=== PATIENT | male | born 1970 | race Caucasian/White ===

== ENCOUNTER → 2018-07-01 06:03 | Outpatient (CLI) | payer OTHER, SELFPAY ==
[2018-07-01 07:00] LABS: Anion Gap 5 (5-15); BUN 22 mg/dL (7-18); BUN/Creat Ratio 20.2 RATIO (10-20); Calcium,Total 8.4 mg/dL (8.5-10.1); Chloride 104 mmol/L (98-107); Cholesterol 166 mg/dL (200); Creatinine, Serum 1.09 mg/dL (0.70-1.30); EST Glomerular Filtration Rate 77 mL/min (>60); Est Glom Filt Rate - Afr Amer 93 mL/min (>60); Glucose 85 mg/dL (74-106); High Density Lipoprotein 56 mg/dL; Sodium Level 140 mmol/L (136-145); Triglycerides 61 mg/dL; Very Low Density Lipoprotein 12 mg/dL (5-40)
== END ==
PROVIDERS: Family Provider Family Medicine; PCP Family Medicine; Visit Provider Family Medicine
DX: Z00.00 Encounter for general adult medical examination without abnormal findings (principal)
CPT/HCPCS: 36415; 80048; 80061

== ENCOUNTER → 2019-11-07 07:32 | Outpatient (CLI) | payer OTHER, SELFPAY ==
[2019-11-07 08:51] LABS: Anion Gap 3 (5-15); BUN 16 mg/dL (7-18); BUN/Creat Ratio 15.1 RATIO (10-20); Calcium,Total 8.9 mg/dL (8.5-10.1); Chloride 101 mmol/L (98-107); Cholesterol 201 mg/dL (200); Creatinine, Serum 1.06 mg/dL (0.70-1.30); EST Glomerular Filtration Rate 79 mL/min (>60); Est Glom Filt Rate - Afr Amer 95 mL/min (>60); Glucose 92 mg/dL (74-106); High Density Lipoprotein 60 mg/dL; PSA,Total - Annual Screen 0.68 ng/mL (0.00-4.00); Potassium 3.9 mmol/L (3.5-5.1); Sodium Level 139 mmol/L (136-145); Triglycerides 94 mg/dL; Very Low Density Lipoprotein 19 mg/dL (5-40)
== END ==
PROVIDERS: PCP Family Medicine; Referring Provider Family Medicine; Visit Provider Family Medicine
DX: Z13.1 Encounter for screening for diabetes mellitus (principal); Z13.220 Encounter for screening for lipoid disorders; Z12.5 Encounter for screening for malignant neoplasm of prostate
CPT/HCPCS: 36415; 80048; 80061; 84153; G0103

== ENCOUNTER 2021-02-04 07:19 | Day surgery (SDC) | payer OTHER, SELFPAY ==
[2020-02-13 09:10] VITALS: BMI 23.1
[2021-02-04] VITALS (7 sets, daily range): BP systolic 92–118; BP diastolic 58–81; PULSE 51–59; RESP 16–18; TEMP 36.3–36.8; O2SAT 100; BMI 22.4
[2021-02-04] MEDS: Lactated Ringers 1,000 ML 100 ML IV (08:04)
--- NOTE | 2021-02-04 08:06 | PCM.HP.STD ---
Problem List (1) Screening for intestinal cancer Status: Acute History of Present Illness Date of Admission: 02/04/21 The patient is a 50 year old M who presents for screening colonoscopy. I saw him in the office almost 1 year ago. He was having some intermittent rectal bleeding at that time. Because of COVID-19 plans for colonoscopy were canceled. He otherwise enjoys good health. He has not had COVID-19. He denies shortness of breath. He will intermittently note some rectal bleeding. There is no pain. He has had no weight loss. There is no family history of colon cancer. Past Medical History Medical History: Medical History (Last Reviewed 02/13/20 @ 09:06 by Gardenia Pham) Vertigo (Acute) R42 Rectal bleeding (Acute) K62.5 Dizziness R42 Rectal bleeding K62.5 Allergies Penicillins Allergy (Unknown, Verified 02/04/21 07:58) unknown Home Medications: Ambulatory Orders Medication Instructions Recorded NK 02/13/20 Surgical History: Surgical History (Last Updated 02/13/20 @ 09:06 by Gardenia Pham) Hx of vasectomy Z98.52 Smoking Status: Former smoker Tobacco Use: Non-smoker Review of Systems Constitutional: Denies: Fever Respiratory: Denies: Cough Gastrointestinal: Denies: Abdominal Pain Endocrine: Denies: Change in Body Habitus VTE Information - Inpt Only VTE Present on Admission: No - Physical Exam Vitals/I&O's: Vital Signs Temp Pulse Resp BP Pulse Ox 98 F 59 L 16 118/81 H 100 02/04/21 07:58 02/04/21 07:58 02/04/21 07:58 02/04/21 07:58 02/04/21 07:58 Oxygen Delivery Method Room Air Weight: 169 lb 8.568 oz Body Mass Index (BMI) 22.4 General: Alert, Oriented x3, Cooperative Oral: Moist Mucosa Lungs: Clear to auscultation Cardiovascular: Regular rate, Regular Rhythm Abdomen: Soft, Non Tender Extremities: No Calf Tenderness Psych/Mental Status: Normal Affect Microbiology Past 72 Hours 02/03/21 09:08 Interface Orders SARS-CoV-2 Antigen (Rapid) - Final Current Medications Lactated Ringer's () 1,000 mls @ 100 mls/hr IV .Q10H YOVANI Last Admin: 02/04/21 08:04 Dose: 100 mls/hr Documented by: Assessment/Plan All Active Problems (Last Reviewed 02/13/20 @ 09:06 by Gardenia Pham) Screening for intestinal cancer (Acute) Vertigo (Acute) Rectal bleeding (Acute) 50-year-old gentleman who is never had a previous colonoscopy and has some intermittent rectal bleeding presents for screening. He has had an opportunity to ask and have questions answered. I anticipate a colonoscopy with possible biopsy or polypectomy as indicated. He presents via open access today. Naseem Pagan M.D., F.A.C.S.
--- NOTE | 2021-02-04 09:03 | OP.COLON_ITS ---
Patient Name: Brandon Leos Procedure Date: 02/04/2021 8:36 AM Date of : 1970 Age: 50 Procedure: Colonoscopy Indications: Screening for colorectal malignant neoplasm Providers: Naseem Pagan MD Referring MD: Marc Merrill Medicines: See the Anesthesia note for documentation of the administered medications Patient Profile: Last Colonoscopy: none. The patient's first colonoscopy is today. Complications: No immediate complications. Procedure: Pre-Anesthesia Assessment: - Prior to the procedure, a History and Physical was performed, and patient medications and allergies were reviewed. The patient's tolerance of previous anesthesia was also reviewed. The risks and benefits of the procedure and the sedation options and risks were discussed with the patient. All questions were answered, and informed consent was obtained. Prior Anticoagulants: The patient has taken no previous anticoagulant or antiplatelet agents. ASA Grade Assessment: I - A normal, healthy patient. After reviewing the risks and benefits, the patient was deemed in satisfactory condition to undergo the procedure. After I obtained informed consent, the scope was passed under direct vision. Throughout the procedure, the patient's blood pressure, pulse, and oxygen saturations were monitored continuously. The Colonoscope was introduced through the anus and advanced to the cecum, identified by appendiceal orifice and ileocecal valve. The colonoscopy was performed without difficulty. The patient tolerated the procedure well. The quality of the bowel preparation was good. The ileocecal valve and the appendiceal orifice were photographed. Scope In: 8:42:19 AM Scope Withdrawal Time 0 hours 8 minutes 44 seconds Scope Out: 8:57:53 AM Total Procedure Duration Time 0 hours 15 minutes 34 seconds Findings: The digital rectal exam findings include non-thrombosed internal hemorrhoids and internal hemorrhoids that prolapse with straining, but require manual replacement into the anal canal (Grade III). Pertinent negatives include normal prostate (size, shape, and consistency). Multiple diverticula were found in the sigmoid colon. Impression: - Non-thrombosed internal hemorrhoids and internal hemorrhoids that prolapse with straining, but require manual replacement into the anal canal (Grade III) found on digital rectal exam. - Diverticulosis in the sigmoid colon. - No specimens collected. Recommendation: - Discharge patient to home. - Resume previous diet. - Continue present medications. - Repeat colonoscopy in 10 years for screening purposes. Suspect internal hemorrhoids as source of intermittent rectal bleeding. Consider ppH hemorrhoidopexy Procedure Code(s): --- Professional --- 48096, Colonoscopy, flexible; diagnostic, including collection of specimen(s) by brushing or washing, when performed (separate procedure) Diagnosis Code(s): --- Professional --- Z12.11, Encounter for screening for malignant neoplasm of colon K64.2, Third degree hemorrhoids K57.30, Diverticulosis of large intestine without perforation or abscess without bleeding CPT copyright 2017 [employer]. All rights reserved. 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 Naseem Pagan MD 02/04/2021 9:02:42 AM This report has been signed electronically. Number of Addenda: 0 Note Initiated On: 02/04/2021 8:36 AM
--- NOTE | 2021-02-04 09:03 | OP.CCLET_ITS ---
02/04/2021 Marc Merrill [address] [place] [address] Re : Colonoscopy procedure for Brandon Leos Dear Dr. Merrill This procedure was performed on Thursday, February 04, 2021. My impressions and recommendations are as follows: Impressions : - Non-thrombosed internal hemorrhoids and internal hemorrhoids that prolapse with straining, but require manual replacement into the anal canal (Grade III) found on digital rectal exam. - Diverticulosis in the sigmoid colon. - No specimens collected. Recommendations : - Discharge patient to home. - Resume previous diet. - Continue present medications. - Repeat colonoscopy in 10 years for screening purposes. Suspect internal hemorrhoids as source of intermittent rectal bleeding. Consider ppH hemorrhoidopexy My findings are described in the full procedure note, which is enclosed. If I can be of further assistance, please feel free to contact me at Doctor phone number(s): Work: . Sincerely, Naseem Pagan MD 02/04/2021 9:02:42 AM This report has been signed electronically.
== END 2021-02-04 09:55 | disposition home or self-care (01) ==
LOC: EN 07:19 → AC 07:19
PROVIDERS: PCP Family Medicine; Referring Provider Family Medicine; Visit Provider Surgery
PROC: 0DJD8ZZ Inspection of Lower Intestinal Tract, Via Natural or Artificial Opening Endoscopic (ICD-10-PCS; CPT 45378; principal; 2021-02-04 08:25)
DX: Z12.11 Encounter for screening for malignant neoplasm of colon (principal); K64.2 Third degree hemorrhoids; K57.30 Diverticulosis of large intestine without perforation or abscess without bleeding; Z20.822 Contact with and (suspected) exposure to COVID-19; Z87.891 Personal history of nicotine dependence
CPT/HCPCS: 45378; 87426; C9803; J2405

== ENCOUNTER 2021-03-20 12:34 | Emergency (ER) | payer OTHER, SELFPAY ==
[2021-02-04 07:58] VITALS: BMI 22.4
[2021-03-20 12:35] VITALS: BP 125/76; PULSE 70; RESP 16; TEMP 36.2; BMI 22.8
--- NOTE | 2021-03-20 12:46 | EDS_ITS ---
HPI History of Present Illness Chief Complaint: Laceration Informant: patient Onset/Context/Timing Onset: Today Mechanism/Context: Incised (accidentally w/ end of chain saw) Location of pain/injuries: Left thigh Quality of Pain: - (sore) Current Severity: Mild Maximum Severity: Mild Worsened by: palpation Relieved by: leaving alone Associated Symptoms Associated Symptoms: Negative for Parasthesias, Weakness, Loss of function and I nability to ambulate Narrative Narrative: Patient was using a chainsaw to cut wood and accidentally caught his left thigh. Laceration did not go deep and he denies any loss of function has been able to walk normally. He is on no blood thinners or any other daily medications. No other injuries. Tetanus Immunization: 5-10 years [facility] Medical History (Updated 03/20/21 @ 13:[address] Agustín Monique MD) Dizziness Rectal bleeding Rectal bleeding Vertigo Home Medications NK 02/13/20 [History Last Taken Unknown] Allergy/AdvReac Type Severity Reaction Status Date / Time Penicillins Allergy Unknown unknown Verified 02/04/21 07:58 Family History Father Heart disease Grandmother CVA (cerebral vascular accident) Surgical History Hx of vasectomy Social History Smoking Status: Former smoker alcohol intake: never substance use type: does not use ROS ROS ED Constitutional Constitutional ED: Denies chills or fever(s) Musculoskeletal Musculoskeletal: Reports extremity pain; Denies neck pain Integumentary Reports Abrasions and laceration; Denies rash Neurologic Neurologic: Denies paresthesias or weakness EXAM Physical Exam Const Vital Signs: 03/20/21 12:35 Temperature 97.1 F L Temperature Source Temporal Pulse Rate 70 Respiratory Rate 16 Blood Pressure 125/76 H Blood Pressure Mean 92 Positive well nourished and well developed General Appearance ED: well developed and NAD Neck full ROM and supple Back/Spine normal ROM and normal to inspection Extremity full ROM Extremity Narrative: Minimally tender at laceration left anterior distal thigh, full range of motion of the knee and hip. No other signs of injury. Neuro oriented x3, no focal motor deficits and no sensory deficits noted Sensorium / Orientation: alert Psych mental status grossly normal and thought process normal Skin Skin Narrative: 8 cm clean linear subcutaneous laceration that does not go beyond subcutaneous fat layer of the distal left thigh. No foreign material visible. Nearby superficial abrasion that does not require repair, parallel to and above the laceration. Rashes: no rashes PROC Procedures Lacerations Left thigh: Length: 8 cm Depth: Sub Q Shape: Linear Prep: Sterile Conditions and Chlorhexadine Laceration repair: Lidocaine (Plain 1%), Local (9cc) and Skin sutures Irrigated (ml): 100 Number of Sutures/Danisha: 5 Suture Information: Horizontal, Mattress and 4-0 MDM MDM MDM Narrative Medical decision making narrative: Wound was repaired, leg edema stasis and skin edge apposition was obtained, his tetanus was updated, I discussed reasons to return and suture removal/wound reevaluation in 10-14 days. Discharge Plan Triage Chief Complaint: Laceration ED Provider: Agustín Monique Dx/Rx/DC Orders Clinical Impression: Laceration of left thigh, Immunization, tetanus-diphtheria Instructions: ED Laceration: All Closures Prescriptions: No Action NK RF: 0 Primary Care Provider: Marc Merrill Referrals: Marc Merrill MD [Primary Care Provider] - 10-14 Days suture removal (Or ER/urgent care) Disposition Disposition: Home, self care
[2021-03-20] MEDS: Diphth,Pertuss(Acell),Tet Vac 0.5 ML Vial IM (12:53)
[2021-03-20] MEDS: Lidocaine 1% (20 ml mdv) 20 ML Vial INFILT (12:54)
[2021-03-20 14:00] VITALS: PULSE 88; RESP 16; O2SAT 97
== END 2021-03-20 14:03 | disposition home or self-care (01) ==
PROVIDERS: Emergency Provider Emergency Medicine; PCP Family Medicine
DX: S71.112A Laceration without foreign body, left thigh, initial encounter (principal); W29.3XXA Contact with powered garden and outdoor hand tools and machinery, initial encounter; Z87.891 Personal history of nicotine dependence
CPT/HCPCS: 12004; 90471; 90715; 99283

== ENCOUNTER → 2021-09-02 | Outpatient (CLI) | payer OTHER, SELFPAY | END | disposition home or self-care (01) | PROVIDERS: PCP Family Medicine; Visit Provider Family Medicine | DX: U07.1 COVID-19 (principal) | CPT/HCPCS: 87635; U0005; U0003 ==

== ENCOUNTER 2022-08-25 06:37 | Emergency (ER) | payer OTHER, SELFPAY ==
[2022-08-25 06:39] VITALS: BP 136/81; PULSE 59; RESP 14; TEMP 36.7; O2SAT 99; BMI 22.2
--- NOTE | 2022-08-25 07:09 | EKG12_ITS ---
Test Reason : CP Blood Pressure : / mmHG Vent. Rate : 059 BPM Atrial Rate : 059 BPM P-R Int : 176 ms QRS Dur : 098 ms QT Int : 440 ms P-R-T Axes : 081 060 071 degrees QTc Int : 435 ms Sinus bradycardia with occasional Premature ventricular complexes Otherwise normal ECG Confirmed by BRITNI SHANNON, SAMEERA ([id number]), loan expeditor RONY OTT ([id number]) on 08/29/2022 11:28:41 AM Referred By: BERNA Confirmed By:SAMEERA RYDER MD
[2022-08-25 07:20] LABS: Absolute Lymphocyte Count 1.15 X10^3/uL (0.83-4.51); Absolute Neutrophil Count 1.9 X10^3/uL (2.0-7.7); Basophil# 0.04 X10^3/uL; Eosinophil# 0.36 X10^3/uL; Eosinophils% 9.2 % (0-5); Hematocrit 44.6 % (40-54); Hemoglobin 15.2 g/dL (13.0-16.5); Lymphocyte # 1.15 X10^3/ul (0.83-4.51); Lymphocyte % 29.3 % (19-41); Mean Corp Hgb Conc 34.1 g/dL (32-36); Mean Corpuscular Hgb 30.8 pg (27.0-32.0); Mean Corpuscular Volume 90.5 fL (80-94); Mean Platelet Vol. 9.1 fl (6.2-12.0); Monocyte# 0.47 X10^3/uL; NRBC Flagged by Analyzer 0 % (0-5); Neutrophil % 48.2 % (47-70); Platelet Count 189 K/mm3 (150-450); RBC Distribution Width CV 12.3 % (11.6-14.6); RBC Distribution Width SD 40.4 fl (35.1-43.9); Red Blood Count 4.93 M/mm3 (4.6-6.2); White Blood Count 3.9 K/mm3 (4.4-11.0)
--- NOTE | 2022-08-25 07:20 | RAD_ITS ---
EXAM: XR CHEST, 1 VIEW CLINICAL INDICATION: chest pain TECHNIQUE: Frontal view of the chest. This report was created using [employer] report generation technology. COMPARISON: None. FINDINGS: LUNGS AND PLEURAL SPACES: Normal. No consolidation or edema. No pneumothorax. No effusion. HEART: Normal heart size. MEDIASTINUM: No mediastinal or hilar mass. BONES/JOINTS: No acute abnormality. SOFT TISSUES: Normal. RAD/Chest 1 View (Portable) IMPRESSION: No acute cardiopulmonary disease. Electronically Signed: Dago Jenkins MD at 7:34 EST ,
--- NOTE | 2022-08-25 07:26 | EDS_ITS ---
HPI History of Present Illness Chief Complaint: Chest Pain Onset/Context/Timing Onset: Today Activity at onset: sudden Timing: Intermittent and Lasts (Approximately 6 minutes) Quality: Positive for Tightness Location: Substernal, Right Parasternal, Left Parasternal, Right Chest and Left Chest Worsened By: Nothing Relieved By: Nothing Associated Symptoms: Positive for Diaphoresis, Dyspnea and Lightheadedness; Negative for Nausea, Vomiting, Cough, Fever, Acid Reflux or Palpitations Narrative Narrative: Patient presents with with chest pain that began approximate 1 hour prior to arrival. Patient states it felt like a tightness across his entire chest. Patient states it lasted for approximately 6 minutes and then resolved. Patient states nothing makes it worse and nothing makes it better. Patient states he broke out into a sweat with it. Patient admits to some shortness of breath with the pain. Patient also admits to some lightheadedness. Patient denies any nausea or vomiting. Patient denies any cough. Patient denies any palpitations. Patient denies any radiation to his neck or back. CVD Risk Factors: Negative for Hypertension, Diabetes, Hypercholesterolemia, Family History 1' </=55 or Smoking PE Risk Factors: Negative for Recent Travel/Surgery, Recent Immobilization, Prior DVT or PE, Cancer or OCP + Smoking + >/=35 PFSH PFSH Medical History (Updated 08/25/22 @ 10:[address] Gamaliel Bruce DO) Dizziness Rectal bleeding Rectal bleeding Vertigo Allergy/AdvReac Type Severity Reaction Status Date / Time Penicillins Allergy Unknown unknown Verified 10/28/21 13:09 Family History Father Heart disease Grandmother CVA (cerebral vascular accident) Surgical History Hx of vasectomy Surgical History no surgical history Social History Smoking Status: Former smoker alcohol intake: never substance use type: does not use ROS ROS ED Constitutional Constitutional ED: Denies chills or fever(s) Eyes Eyes: Denies blurry vision or change in vision ENT ENT ED: Denies rhinorrhea or sore throat Cardiovascular Cardiovascular: Reports chest pain; Denies palpitations Respiratory/Chest Respiratory/Chest: Reports dyspnea; Denies cough Gastrointestinal Gastrointestinal: Denies abdominal pain, nausea or vomiting Genitourinary Genitourinary ED: Denies dysuria or hematuria Musculoskeletal Musculoskeletal: Denies back pain or neck pain Integumentary Denies abscess or rash Neurologic Neurologic: Denies headache(s) or weakness Allergic/Immunologic Allergic/Immunologic ED: Denies mouth swelling or urticaria EXAM Physical Exam Const Vital Signs: 08/25/22 06:39 08/25/22 06:42 08/25/22 07:10 Temperature 98.1 F Temperature Source Oral Pulse Rate 59 L Respiratory Rate 14 Respiratory Effort Normal Non-Labored Respiratory Pattern Normal Blood Pressure 136/81 H Blood Pressure Mean 99 Pulse Ox 99 Oxygen Delivery Method Room Air Room Air 08/25/22 07:51 08/25/22 08:12 08/25/22 09:05 Temperature Temperature Source Pulse Rate 60 59 L 56 L Respiratory Rate 16 18 12 Respiratory Effort Respiratory Pattern Blood Pressure 97/71 102/76 101/77 Blood Pressure Mean 79 84 85 Pulse Ox 98 99 100 Oxygen Delivery Method Room Air Room Air Room Air Positive well nourished and well developed General Appearance ED: well developed and NAD HEENT normocephalic and atraumatic Eyes PERRL and EOMs intact bilaterally Neck supple and no JVD Chest Wall palpation of chest normal Resp normal respiratory effort and clear to auscultation bilaterally Effort and Inspection: Negative for respiratory distress Cardio regular rate and regular rhythm GI normal to inspection, nondistended, normoactive bowel sounds, soft to palpation, non-tender and non-distended Extremity normal to inspection General Extremety ED: Negative for edema or tenderness General Extremity: Negative for edema Neuro oriented x3, CN's II-XII intact bilaterally and no sensory deficits noted Sensorium / Orientation: awake and alert Motor Exam: strength 5/5 throughout Psych mental status grossly normal Heart Score History: Slightly/Non-Suspicious ECG: Normal Age: >45 - <65 years Risk Factors: No Risk Factors Troponin: </= Normal Limit Score: 1 MDM MDM MDM Narrative Medical decision making narrative: Patient was given aspirin here. EKG was obtained. On my interpretation, it showed a normal sinus rhythm with occasional PVCs with a rate of 59. IL interval, QRS interval, and QTc intervals were all normal. Randolph was normal. There are no acute ST or T wave changes. Portable 1 view chest x-ray was obtained. On my interpretation, lung beltre are clear. There is normal cardiac silhouette. Bony thorax is normal. There is no acute process noted. Radiologist also interpreted the x-ray and agrees. CBC was within normal limits. Basic metabolic profile was within normal limits. High-sensitivity troponin was normal. 2-hour repeat high-sensitivity troponin was normal. Darlene giles has a HEART score of 1. Patient was advised that this is low risk for acute cardiac event. Patient was instructed to follow-up with his primary care physician in 5 to 7 days. Patient understood and was agreeable with the plan. All questions were answered. Lab Data Attestation: I reviewed the patient's lab results. Labs: Laboratory Results - last 24 hr 08/25/22 08/25/22 08/25/22 07:01 07:01 09:05 WBC 3.9 L RBC 4.93 Hgb 15.2 Hct 44.6 MCV 90.5 MCH 30.8 MCHC 34.1 RDW Std Deviation 40.4 RDW Coeff of Mike 12.3 Plt Count 189 MPV 9.1 Immature Gran % (Auto) 0.300 Neut % (Auto) 48.2 Lymph % (Auto) 29.3 Towns % (Auto) 12.0 H Eos % (Auto) 9.2 H Baso % (Auto) 1.0 Absolute Neuts (auto) 1.9 L Absolute Lymphs (auto) 1.15 Nucleated RBC % 0 Sodium 141 Potassium 3.9 Chloride 103 Carbon Dioxide 35.0 H Anion Gap 3 L BUN 22 H Creatinine 1.01 Estim Creat Clear Calc 92.57 Est GFR (MDRD) Af Amer 99 Est GFR (MDRD) Non-Af 82 BUN/Creatinine Ratio 21.8 H Glucose 130 H Calcium 9.1 Troponin I High Sens 6 6 Radiography Chest X-Ray - ED: 1 View, Read by ED Physician, Read by Radiologist and No Acute Disease Diagnostic Testing: Clinical Impression(s) from Imaging Studies Chest X-Ray 08/25/22 07:20 IMPRESSION: No acute cardiopulmonary disease. Electronically Signed: Dago Jenkins MD at 7:34 EST , EKG Initial EKG: Attestation: I personally reviewed and interpreted this EKG as follows: Interpretation: Sinus Rhythm (Was occasional PVCs with a rate of 59) and No Acute Injury Pattern Prior EKG tracings: not available for review Prior: No Prior Discharge Plan Triage Chief Complaint: Chest Pain ED Provider: Gamaliel Bruce Dx/Rx/DC Orders Clinical Impression: Chest pain of uncertain etiology, Elevated blood pressure reading without diagnosis of hypertension Instructions: ED Chest Pain, Uncertain Cause Primary Care Provider: Marc Merrill Referrals: Marc Merrill MD [Primary Care Provider] - 5-7 Days Disposition Disposition: Home, Self Care
[2022-08-25 07:35] LABS: Anion Gap 3 (5-15); BUN 22 mg/dL (7-18); BUN/Creat Ratio 21.8 RATIO (10-20); Calcium,Total 9.1 mg/dL (8.5-10.1); Chloride 103 mmol/L (98-107); Creatinine, Serum 1.01 mg/dL (0.70-1.30); EST Glomerular Filtration Rate 82 mL/min (>60); Est Glom Filt Rate - Afr Amer 99 mL/min (>60); Estimated Creatinine Clearance 92.57 ml/min; Glucose 130 mg/dL (74-106); Potassium 3.9 mmol/L (3.5-5.1); Sodium Level 141 mmol/L (136-145); Troponin-I HS 6 pg/mL (3.0-78.0)
[2022-08-25 07:51] VITALS: BP 97/71; PULSE 60; RESP 16; O2SAT 98
[2022-08-25] MEDS: Aspirin 81 MG TAB.CHEW 324 MG PO (07:52)
[2022-08-25 08:12] VITALS: BP 102/76; PULSE 59; RESP 18; O2SAT 99
[2022-08-25 09:05] VITALS: BP 101/77; PULSE 56; RESP 12; O2SAT 100
[2022-08-25 09:28] LABS: Troponin-I HS 6 pg/mL (3.0-78.0)
[2022-08-25 10:15] VITALS: BP 104/68; PULSE 61; RESP 14; O2SAT 98
== END 2022-08-25 10:15 | disposition home or self-care (01) ==
PROVIDERS: Emergency Provider Emergency Medicine; PCP Family Medicine; Visit Provider Emergency Medicine
DX: R07.9 Chest pain, unspecified (principal); R03.0 Elevated blood-pressure reading, without diagnosis of hypertension; Z87.891 Personal history of nicotine dependence
CPT/HCPCS: 36415; 71045; 80048; 84484; 85025; 93005; 99285; A4216

== ENCOUNTER → 2022-09-12 | Outpatient (CLI) | payer OTHER, SELFPAY ==
--- NOTE | 2022-09-12 08:15 | STRESSREP_ITS ---
Stress Test Report Date: 09-12-2022 Procedure: Exercise tolerance test/imaging study Indications: Chest pain Consent: Per the patient Procedure: The patient exercised on a Steve protocol for 14 minutes completing Stage IV and 2 minutes of Stage V achieving a peak heart rate of 179 bpm (106% predicted maximal heart rate) with resting blood pressure of 106/76 mmHg and a peak blood pressure 184/80 mmHg and a peak MET capacity of 17 METs. The baseline ECG demonstrated normal sinus rhythm. The peak exercise ECG demonstrated somatic/motion artifact but no obvious ECG changes. There was an isolated PVC during exercise and recovery. The functional capacity was considered good. There was no complaint of chest discomfort during exercise or recovery. The examination was discontinued secondary to dyspnea and leg fatigue. Impression: 1. Technically adequate (percent predicted maximal heart rate greater than 85%) exercise tolerance test 2. Peak exercise ECG with somatic/motion artifact with no obvious ECG changes 3. There was an isolated PVC during exercise and recovery 4. Nuclear images pending Myocardial perfusion imaging study: Technique: The patient was injected with 11.5 mCi of technetium 99m Cardiolite and subsequently rest SPECT Cardiolite nuclear imaging was obtained in the horizontal long, vertical long, and short axis views. The patient exercised on a Steve protocol for 14 minutes completing Stage IV and 2 minutes of Stage V achieving a peak heart rate of 179 bpm (106% predicted maximal heart rate) with resting blood pressure of 106/76 mmHg and a peak blood pressure 184/80 mmHg and a peak MET capacity of 17 METs. The patient was injected with 33.1 mCi of technetium 99m Cardiolite and subsequently stress SPECT Cardiolite nuclear imaging was obtained in the horizontal long, vertical long, and short axis views. A gated Cardiolite study at peak stress was obtained. Interpretation: Rest and stress SPECT Cardiolite nuclear imaging status post realignment, normalization, and attenuation correction, demonstrates the appearance of relative uniform tracer uptake and myocardial perfusion appearing within normal limits. There is end systolic thickening and brightening. The gated Cardiolite study demonstrates myocardial thickening and inward wall motion. The reported LVEF is 59%. Impression: 1. Rest and stress SPECT Cardiolite nuclear imaging demonstrate relative uniform tracer uptake and myocardial perfusion appearing within normal limits. 2. The gated Cardiolite study reports an LVEF of 59%. This note was generated with [employer] software. It may contain incorrect words, spelling, and punctuation that were not noted in checking the note before signing.
== END | disposition home or self-care (01) ==
PROVIDERS: PCP Family Medicine; Visit Provider Nurse Practitioner Family
DX: R07.9 Chest pain, unspecified (principal)
CPT/HCPCS: 78452; 93017; A9500; A4216

== ENCOUNTER 2022-11-24 08:48 | Day surgery (SDC) | payer OTHER, SELFPAY ==
--- NOTE | 2022-11-21 07:13 | EKG12_ITS ---
Test Reason : PRE-OP Blood Pressure : / mmHG Vent. Rate : 070 BPM Atrial Rate : 070 BPM P-R Int : 168 ms QRS Dur : 094 ms QT Int : 398 ms P-R-T Axes : 080 068 067 degrees QTc Int : 429 ms Normal sinus rhythm Normal ECG Confirmed by BRITNI SHANNON, SAMEERA ([id number]), news videotape editor RONY OTT ([id number]) on 11/21/2022 2:00:45 PM Referred By: VAN Confirmed By:SAMEERA RYDER MD
[2022-11-21 07:39] LABS: Hematocrit 43.4 % (40-54); Hemoglobin 15.4 g/dL (13.0-16.5); Mean Corp Hgb Conc 35.5 g/dL (32-36); Mean Corpuscular Hgb 31.4 pg (27.0-32.0); Mean Corpuscular Volume 88.6 fL (80-94); Platelet Count 198 K/mm3 (150-450); RBC Distribution Width CV 12.2 % (11.6-14.6); RBC Distribution Width SD 39.5 fl (35.1-43.9)
[2022-11-21 08:27] LABS: Anion Gap 5 (5-15); BUN 18 mg/dL (7-18); BUN/Creat Ratio 16.7 RATIO (10-20); Calcium,Total 9.1 mg/dL (8.5-10.1); Chloride 105 mmol/L (98-107); Creatinine, Serum 1.08 mg/dL (0.70-1.30); EST Glomerular Filtration Rate 76 mL/min (>60); Est Glom Filt Rate - Afr Amer 92 mL/min (>60); Glucose 105 mg/dL (74-106); Potassium 4.4 mmol/L (3.5-5.1); Sodium Level 143 mmol/L (136-145)
[2022-11-24] VITALS (7 sets, daily range): BP systolic 113–130; BP diastolic 78–92; PULSE 61–75; RESP 10–18; TEMP 36.4–37.2; O2SAT 98–100; BMI 22.1
[2022-11-24] MEDS: Lactated Ringers 1,000 ML 15 ML IV ×2 (09:00→11:14)
--- NOTE | 2022-11-24 11:00 | HEM_PTH ---
PATIENT: LUCILA MOFFETT LOC: [facility] [place][id number] AGE/SX: 52/M ROOM: RE11/24/[address]: Dr. Naseem Pagan MD : 1970 BED: DIS: 11/24/2022 SPEC #: [id number] RECD: 11/24/22 13:17 STATUS: GRADY AN #: [id number] JORGE: 11/24/22 11:[address]: Naseem Pagan DEPT: SURGICAL PATHOLOGY RECD BY: Ines Chester ENTERED: 11/27/22 11:17 SP TYPE: HEMORRHOID OTHR DR: Dr. Laci Merrill MD Tissues: HEMORRHOIDS Procedures: Surgery Specimen Level IV HEADER OPERATION: EUA, anal fissurectomy and possible minimal internal hemorrhoids PRE-OP DIAGNOSIS: Rectal bleeding/hemorrhoids TISSUE SUBMITTED: Anal fissure and hemorrhoid MICROSCOPIC DIAGNOSIS Anal fissure and hemorrhoid, excision: Submucosal vascular ectasia and thrombosis consistent with hemorrhoid. Focal granulation suggestive of fissure. AM:lauro 11/28/2022 MICROSCOPIC DESCRIPTION Slides are reviewed. GROSS DESCRIPTION Received in fixative is one container labeled with the patient's name and designated anal fissure and hemorrhoid. The specimen consists of an irregular piece of bergeron, congested mucosal tissue measuring 2.5 x 2.8 x 1 cm. Sections reveal congested and hemorrhagic cut surfaces. The entire specimen is submitted in two cassettes. / ESTEFANY:lauro 11/27/2022 TC:5 CPT: 41920
--- NOTE | 2022-11-24 11:00 | PCM.HP.BLA ---
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 Naseem Pagan MD) Dizziness Rectal bleeding Rectal bleeding Vertigo Surgical History? Hx of vasectomy Surgical History? no surgical history ? Family History? Father Heart diseaseGrandmother CVA (cerebral vascular accident) Social History? Smoking Status:? Former smoker alcohol intake:? never substance use type:? does not use HPI HPI HPI: 52-year-old gentleman.? I initially saw him February 13, 2020 for rectal bleeding.? It was not till February 04, 2021 that he pursued a colonoscopy.? This demonstrated grade 3 hemorrhoids which were reducible.? At that point I offered him consideration for a hemorrhoidopexy.? He returned however October 28, 2021 with recurrent rectal bleeding.? That time he was having painful defecation.? He had had an episode of Covid-19.? I detected a posterior anal fissure and recommended daily fiber supplement and hydrocortisone suppositories and diltiazem ointment.? At that point did not feel that hemorrhoidopexy would be a good choice.? We discussed potential future hemorrhoidectomy/fissurectomy if required. The patient reports that he never is healed from that previous appointment.? He has ongoing intermittent bleeding and he has ongoing daily pain.? He is try to alleviate his symptoms by stopping his exercise program but that has helped only marginally.? Initially with the diltiazem cream and suppositories he made improvement but he never completely resolved. ROS General General: No weight change, appetite, fatigue, colon cancer, breast cancer or weakness HEENT HEENT: No difficulty swallowing, eye injury, eye surgery, swollen glands or hoarseness Endo Endocrine: No thyroid disease, diabetes mellitus, thyroid cancer, Hair loss, heat intolerance or cold intolerance Skin Skin: No rash or changing moles Breast Breast: No left breast lump, right breast lump, nipple discharge, breast pain, abnormal mammogram, abnormal US or breast enlargement Musc Musculoskeletal: No back problems, arthritis, rheumatoid arthritis, gout or joint pain Cardio Cardiovascular: No murmur, pacemaker, heart disease, atrial fibrillation, high blood pressure, heart attack, heart stent, palpitations, shortness of breat with exertion or chest pain Psych Psychiatric: No depression, anxiety or hearing voices Resp Respiratory: No shortness of breath, No sleep apnea, No cough, No COPD, No asthma, No emphysema and No wheezing Gastro Gastrointestinal: No abdominal pain, No nausea or vomiting, No diarrhea, No constipation, Yes blood in stool, No acid reflux, Yes hemorrhoids, No ulcers, No gallbladder problem and No black,tarry stools Minh Hematologic: No blood thinners, No blood disorders, No bleeding, No anemia and No blood clots Neuro Neurologic: No weakness Exam Const General: cooperative, healthy appearing, comfortable and no acute distress [facility] Head: normal to inspection Eyes General: appearance normal, both eyes and all related structures Neck Neck: normal visual inspection Chest Chest palpation & inspection: normal inspection of the chest Resp Effort & Inspection: normal respiratory effort Auscultation: clear to auscultation bilaterally Cardio Rate: regular rate Rhythm: regular rhythm GI Inspection: normal to inspection Other: Anal exam demonstrates no significant external hemorrhoidal disease.? Posterior anal fissure.? Internal hemorrhoids Musc Cervical Spine: normal cervical lordosis Skin General: no rashes or lesions noted Neuro General: patient alert, patient awake and patient oriented x3 Extrem General: no calf tenderness Psych Appearance: grossly normal Assessment and Plan Assessment and Plan (1) Anal fissure: ?Status:?Acute (2) Internal hemorrhoids: ?Status:?Acute Plan Very symptomatic posterior anal fissure that has failed to resolve with nonoperative measures.? This is complicated by stage III internal hemorrhoids.? He has rectal bleeding and pain.? In an extensive discussion with the patient I explained examination under esthesia with a anal fissurectomy and possible minimal internal hemorrhoidectomy.? We have discussed the potential for lateral internal sphincterotomy however I have discussed with him the potential risk for incontinence.? At this point I anticipate proceeding without the sphincterotomy.? Do anticipate a gentle dilatation.? I have discussed with him the technique, benefit, risk, alternatives.? We also discussed potential referral to a colorectal surgeon.? I believe that we could pursue that if we are unable to resolve his problem locally.? He has had an opportunity to ask and have questions answered would like to schedule and proceed. The patient will have a half bowel prep the day before procedure in the morning of a saline enema. I appreciate the ongoing opportunity of assisting with the surgical care. Copy: Dr. Laci Pagan M.D., F.A.C.S I have examined the patient and the H&P has been reviewed. There are no clinical changes since date of exam. Naseem Pagan M.D., F.A.C.S.
[2022-11-24] MEDS: Clindamycin 900 MG/50 ML BAG 75 MG IV (11:14)
--- NOTE | 2022-11-24 11:17 | DCINST_ITS ---
Discharge Instructions Diet Discharge Diet: Light diet - advance as tolerated Activity Discharge Activity: May Not Drive (No driving for 3 to 5 days) Dressing / Incision Additional Dressing/Incision Instructions:: Sitz bath's with warm soapy water as needed for comfort and after any bowel movements. Follow Up Care Please Follow Up With: Naseem Pagan MD When: Office appointment in approximately 3 weeks. Please call [phone] Test Results: Test results from this visit will be discussed in further detail at your follow- up appointment, if applicable. Discharge Plan Admission Attending Provider: Naseem Pagan Primary Care Provider: Marc Merrill Discharge Orders/Prescriptions Prescriptions: No Action Metamucil 3.4 gram/5.4 gram powder 1 tbsp PO DAILY Rx Instructions: mix into at least 8 oz of water or juice before administering Other Ambulatory Orders: 12 Lead EKG (Routine) Timeframe: 20221121 Location: None Selected Ordered By: Dr. Naseem Pagan Referrals / Follow Up: Marc Merrill MD [Primary Care Provider] - Disposition Disposition (needs filled in before D/C Order can be placed): Home, Self Care
[2022-11-24] MEDS: Dibucaine 30 GM Tube 1 APPLIC (11:35)
[2022-11-24] MEDS: BUPIVACAINE LIPOSOME/PF 20 ML VIAL OPERA.SITE (11:59)
[2022-11-24] MEDS: Bupivacaine Mpf 0.5% 30 ML VIAL (12:00)
--- NOTE | 2022-11-24 12:03 | OP.PCM_ITS ---
Report of Operation Date of Procedure: 11/24/22 Pre-Operative Diagnosis: Posterior anal fissure Post-Operative Diagnosis: Posterior anal fissure with exuberant hemorrhoids Surgery/Procedure Performed:: Posterior anal fissurectomy with hemorrhoidectomy Description of Surgical Findings:: Timeout informed consent was obtained. 52-year-old gentleman was taken to the operating placed initially supine on the table underwent general endotracheal ovation esthesia. Clindamycin 900 g given intravenously. He was then placed prone jackknife. Careful shoulder roll arm and pelvic padding was performed. The perianal was prepped with Betadine. Tapes were used to assist with exposure. Digital exam demonstrated posterior conglomerate of hemorrhoids with a posterior anal fissure. Anal sphincter is just very gently dilated. Speculum was inserted. Apical suture of 2-0 chromic was placed. Harmonic scalpel was used to excise the fissure and hemorrhoidal bulk immediately at that site. Specimen was submitted for analysis. I approximated the mucosa with a running locking 2-0 chromic with several interrupted 2-0 Vicryl sutures. Excellent closure was achieved. I did not take additional hemorrhoidal tissue so as to not cause stenosis. The perianal area now was anesthetized with 20 cc of Exparel mixed with 20 cc of 0.5% Marcaine. Vaseline gauze treated with Dibucaine ointment was inserted. Cover gauze applied. He tolerated the pr ocedure well there is no apparent complication. Specimens fissure/hemorrhoid. Drains none. Blood loss minimal. Naseem Pagan M.D., F.A.C.S. Surgeon: Naseem Pagan Type of Anesthesia: General and Local Anesthesiologist: Kesha Claudio
== END 2022-11-24 15:25 | disposition home or self-care (01) ==
LOC: SDC 08:50 → AC 08:51
PROVIDERS: PCP Family Medicine; Visit Provider Surgery
PROC: (CPT 46200; principal; 2022-11-24 10:45)
DX: K60.2 Anal fissure, unspecified (principal); K64.2 Third degree hemorrhoids; Z86.16 Personal history of COVID-19; Z87.891 Personal history of nicotine dependence
CPT/HCPCS: 46200; 46255; 36415; 80048; 85027; 88304; 88305; 93005; J7120; J2405

== ENCOUNTER 2023-04-01 19:36 | Emergency (ER) | payer OTHER, SELFPAY ==
[2023-04-01 19:37] VITALS: BP 131/88; PULSE 104; RESP 18; TEMP 37.7; O2SAT 97; BMI 23.6
[2023-04-01] MEDS: Ibuprofen 200 MG Tablet 400 MG PO (20:15)
[2023-04-01] MEDS: 0.9% Normal Saline 1,000 ML 999 ML IV (20:15)
[2023-04-01 20:16] LABS: Bacteria 0 SEEN /hpf (None Seen); Mucous, Urine 0 SEEN /hpf (<or=2+); Red Blood Cells-Urine 0 SEEN /hpf (0-5); Squamous Epithelial Cells - UA 0 SEEN /hpf (0-5); White Blood Cells 0 SEEN /hpf (0-5)
[2023-04-01 20:19] LABS: Absolute Lymphocyte Count 0.64 X10^3/uL (0.83-4.51); Absolute Neutrophil Count 9.1 X10^3/uL (2.0-7.7); Basophil# 0.03 X10^3/uL; Basophil% 0.3 % (0-1); Eosinophil# 0.21 X10^3/uL; Hematocrit 42.4 % (40-54); Hemoglobin 14.7 g/dL (13.0-16.5); Lymphocyte # 0.64 X10^3/ul (0.83-4.51); Mean Corp Hgb Conc 34.7 g/dL (32-36); Mean Corpuscular Volume 89.5 fL (80-94); Mean Platelet Vol. 8.7 fl (6.2-12.0); Monocyte# 0.56 X10^3/uL; Monocyte% 5.3 % (0-10); NRBC Flagged by Analyzer 0 % (0-5); Neutrophil # 9.08 X10^3/uL (2.7-7.7); Neutrophil % 85.8 % (47-70); Platelet Count 250 K/mm3 (150-450); RBC Distribution Width CV 11.8 % (11.6-14.6); RBC Distribution Width SD 38.5 fl (35.1-43.9); Red Blood Count 4.74 M/mm3 (4.6-6.2); White Blood Count 10.6 K/mm3 (4.4-11.0)
--- NOTE | 2023-04-01 20:20 | EX.ED.DYSGE1 ---
HPI <VALDEMAR Feliz - Last Filed: 04/01/23 21:13> History of Present Illness Chief Complaint: Fever Narrative Narrative: Patient presenting today with a fever that he has had for about a week. He reports that he has been waking up from night sweats. He reports pain and tightness to the left side of his chest that has been constant. He has had a slight intermittent dry cough. He feels fatigued and weak. He denies any nasal congestion, sore throat, abdominal pain, nausea, vomiting, diarrhea, and urinary symptoms. He denies any history of blood clots, recent surgery/procedures, recent immobilization. PFSH <VALDEMAR Feliz - Last Filed: 04/01/23 21:13> PFSH Medical History Dizziness Non-smoker Rectal bleeding Rectal bleeding Vertigo Wears glasses Home Medications psyllium husk 3.4 gram/5.4 gram oral powder (Metamucil) 1 tbsp PO DAILY 10/13/22 [History Last Taken Unknown] Allergy/AdvReac Type Severity Reaction Status Date / Time Penicillins Allergy Unknown unknown Verified 04/01/23 19:39 Family History Father Heart disease Grandmother CVA (cerebral vascular accident) Surgical History Hx of vasectomy Social History Smoking Status: Former smoker alcohol intake: never substance use type: does not use ROS <VALDEMAR Feliz - Last Filed: 04/01/23 21:13> ROS ED Constitutional Constitutional ED: Reports chills, fever(s) and sweats ENT ENT ED: Denies rhinorrhea or sore throat Cardiovascular Cardiovascular: Reports chest pain Respiratory/Chest Respiratory/Chest: Reports cough; Denies dyspnea or dyspnea on exertion Gastrointestinal Gastrointestinal: Denies abdominal pain, diarrhea, nausea or vomiting Genitourinary Genitourinary ED: Denies dysuria, hematuria or urinary urgency Musculoskeletal Musculoskeletal: Denies arthralgias or myalgias Integumentary Denies rash Neurologic Neurologic: Reports weakness EXAM <VALDEMAR Feliz - Last Filed: 04/01/23 21:13> Physical Exam Const Vital Signs: 04/01/23 19:37 04/01/23 19:53 04/01/23 21:09 Temperature 99.9 F H 98.2 F Temperature Source Temporal Oral Pulse Rate 104 H 83 Respiratory Rate 18 15 Respiratory Effort Non-Labored Respiratory Pattern Normal Blood Pressure 131/88 H 119/65 Blood Pressure Mean 102 83 Pulse Ox 97 96 Oxygen Delivery Method Room Air Room Air Positive well nourished, well developed and no apparent distress General Appearance ED: well developed HEENT Reports normocephalic and head/scalp atraumatic Mouth ED: Yes moist mucous membranes normal Eyes PERRL and EOMs intact bilaterally Neck full ROM and supple Chest Wall inspection of chest normal Resp normal respiratory effort and clear to auscultation bilaterally Cardio regular rate and regular rhythm GI soft to palpation, non-tender, non-distended and no masses Narrative: Small external hemorrhoid, no visualized fissure. Back/Spine normal ROM and normal to inspection Extremity normal to inspection and full ROM Neuro oriented x3, CN's II-XII intact bilaterally, moves all extremities, no focal motor deficits and no sensory deficits noted Sensorium / Orientation: awake and alert Psych mental status grossly normal and thought process normal Skin no rashes or lesions noted and no wounds <Dr. Rita Chow MD - Last Filed: 04/01/23 22:14> Physical Exam Const Vital Signs: 04/01/23 19:37 04/01/23 19:53 04/01/23 21:09 Temperature 99.9 F H 98.2 F Temperature Source Temporal Oral Pulse Rate 104 H 83 Respiratory Rate 18 15 Respiratory Effort Non-Labored Respiratory Pattern Normal Blood Pressure 131/88 H 119/65 Blood Pressure Mean 102 83 Pulse Ox 97 96 Oxygen Delivery Method Room Air Room Air MDM <VALDEMAR Feliz - Last Filed: 04/01/23 21:13> [facility] Narrative Medical decision making narrative: Patient presenting due to night sweats, fever, and chills which he has had over the past week. He has had a slight cough and left-sided chest pain/pressure that has been constant. He is well-appearing and in no acute distress, he is slightly tachycardic and febrile here. He has been given ibuprofen and IV fluids. Labs obtained rule out leukocytosis, anemia, electrolyte abnormality, UTI. Because of his complaint of chest pain, troponin and EKG obtained to rule out ACS and troponin is WNL, EKG normal sinus rhythm. Chest x-ray obtained to rule out infiltrate and is negative. UA negative for UTI. COVID and flu swabs will be obtained. Patient reported that he had a anal fissure repair and a removal of hemorrhoids in November with Dr. Lilly, it has not been healing correctly and he has been visiting with him monthly to have it checked. Just a few days ago silver nitrate was applied to the area. He wanted me to check that area to make sure that there are no signs of infection. I do see a small external hemorrhoid but I am not visualizing any anal fissure, abscess, or cellulitis. Lab Data Attestation: I reviewed the patient's lab results. Labs: Laboratory Results - last 24 hr 04/01/23 04/01/23 04/01/23 20:07 20:07 20:07 WBC 10.6 RBC 4.74 Hgb 14.7 Hct 42.4 MCV 89.5 MCH 31.0 MCHC 34.7 RDW Std Deviation 38.5 RDW Coeff of Mike 11.8 Plt Count 250 MPV 8.7 Immature Gran % (Auto) 0.600 Neut % (Auto) 85.8 H Lymph % (Auto) 6.0 L [place] % (Auto) 5.3 Eos % (Auto) 2.0 Baso % (Auto) 0.3 Absolute Neuts (auto) 9.1 H Absolute Lymphs (auto) 0.64 L Nucleated RBC % 0 Sodium 136 Potassium 4.1 Chloride 99 Carbon Dioxide 33.0 H Anion Gap 4 L BUN 18 Creatinine 1.13 Estim Creat Clear Calc 85.44 Est GFR (MDRD) Af Amer 87 Est GFR (MDRD) Non-Af 72 BUN/Creatinine Ratio 15.9 Glucose 132 H Calcium 9.2 Troponin I High Sens 4 Urine Color Yellow Urine Clarity Clear Urine pH 6.0 Ur Specific [place] 1.010 Urine Protein Negative Urine Glucose (UA) Normal Urine Ketones Negative Urine Occult Blood Negative Urine Nitrite Negative Urine Bilirubin Negative Urine Urobilinogen Normal Ur Leukocyte Esterase Negative Urine RBC 0 SEEN Urine WBC 0 SEEN Ur Squamous Epith Cells 0 SEEN Urine Bacteria 0 SEEN Urine Mucus 0 SEEN Radiography X-Ray: Read by ED Physician and Read by Radiologist Diagnostic Testing: Clinical Impression(s) from Imaging Studies Chest X-Ray 04/01/23 20:34 IMPRESSION: Normal x-ray examination of the chest. Electronically Signed: Ankit Tillman MD at 20:55 EDT , EKG Initial EKG: Comments: 89 bpm, normal sinus rhythm, no ST elevation, reviewed and interpreted by attending ED physician <Dr. Riat Chow MD - Last Filed: 04/01/23 22:14> [facility] Lab Data Labs: Laboratory Results - last 24 hr 04/01/23 04/01/23 04/01/23 20:07 20:07 20:07 WBC 10.6 RBC 4.74 Hgb 14.7 Hct 42.4 MCV 89.5 MCH 31.0 MCHC 34.7 RDW Std Deviation 38.5 RDW Coeff of Mike 11.8 Plt Count 250 MPV 8.7 Immature Gran % (Auto) 0.600 Neut % (Auto) 85.8 H Lymph % (Auto) 6.0 L [place] % (Auto) 5.3 Eos % (Auto) 2.0 Baso % (Auto) 0.3 Absolute Neuts (auto) 9.1 H Absolute Lymphs (auto) 0.64 L Nucleated RBC % 0 Sodium 136 Potassium 4.1 Chloride 99 Carbon Dioxide 33.0 H Anion Gap 4 L BUN 18 Creatinine 1.13 Estim Creat Clear Calc 85.44 Est GFR (MDRD) Af Amer 87 Est GFR (MDRD) Non-Af 72 BUN/Creatinine Ratio 15.9 Glucose 132 H Calcium 9.2 Troponin I High Sens 4 Urine Color Yellow Urine Clarity Clear Urine pH 6.0 Ur Specific [place] 1.010 Urine Protein Negative Urine Glucose (UA) Normal Urine Ketones Negative Urine Occult Blood Negative Urine Nitrite Negative Urine Bilirubin Negative Urine Urobilinogen Normal Ur Leukocyte Esterase Negative Urine RBC 0 SEEN Urine WBC 0 SEEN Ur Squamous Epith Cells 0 SEEN Urine Bacteria 0 SEEN Urine Mucus 0 SEEN Radiography Diagnostic Testing: Clinical Impression(s) from Imaging Studies Chest X-Ray 04/01/23 20:34 IMPRESSION: Normal x-ray examination of the chest. Electronically Signed: Ankit Tillman MD at 20:55 EDT , Treatment and Re-Evaluation :: Patient seen and evaluated with MARIAJOSE. I personally interviewed and examined the patient. I was involved in all aspects of patient's orders, interpretation of results, and treatment. Patient presents secondary to fevers. He states for the last 9 or 10 days he has had intermittent fevers up to 102. He will wake up at night in a cold sweat. He has been generally fatigued but really no other focal symptoms. He has not had significant cough. He had some vague intermittent left-sided chest pressure but no pleuritic pain. He does not feel short of breath. Has had no vomiting or diarrhea. Patient had surgery in November for hemorrhoid and anal fissure. This reportedly has been slow to heal and has been following monthly with Dr. Pagan. He has not noted increased pain or drainage. Patient sitting upright in bed no acute distress. Nontoxic-appearing. Head and neck examination unremarkable. Heart is regular rate and rhythm without murmur. Lung sounds are clear. Abdomen is soft and nontender. Active bowel sounds are noted. No skin rashes or lesions are noted. CBC and chemistry studies are obtained. White count is normal at 10.5 with 85% neutrophils. Chemistry studies unremarkable. Troponin is normal at 4. Urinalysis reveals no sign of infection. Two-view chest x-ray per my interpretation reveals no focal infiltrate. Radiology interpretation is reviewed and agrees. Swab for COVID and influenza is negative. Test results are discussed with patient and family at bedside. At this time I will add blood cultures. We discussed that his lab results are normal at this time. He is given return instructions and advised to follow-up with his primary care physician. Discharge Plan Triage Chief Complaint: Fever ED Midlevel Provider: Fabby Humphrey ED Provider: Rita Chow Dx/Rx/DC Orders Clinical Impression: Fever Instructions: ED FUO Adult Prescriptions: No Action Metamucil 3.4 gram/5.4 gram powder 1 tbsp PO DAILY Rx Instructions: mix into at least 8 oz of water or juice before administering Primary Care Provider: Marc Merrill Referrals: Marc Merrill MD [Primary Care Provider] - 5-7 Days Disposition Disposition: Home, Self Care
[2023-04-01 20:21] LABS: Color, Urine Yellow (Yellow); Glucose, Dipstick Normal (Normal); Ketone-Dipstick Negative (Negative); Leukocyte Esterase-Dipstick Negative /ul (Negative); Nitrite-Dipstick Negative (Negative); Occult Blood-Urine Negative /ul (Negative); Protein-Dipstick Negative (Negative); Urine Bilirubin Dipstick Negative (Negative); Urine Clarity Clear (Clear); Urine Urobilinogen Normal (Normal)
--- NOTE | 2023-04-01 20:34 | RAD_ITS ---
STUDY: X-RAY CHEST REASON FOR EXAM: Male, 52 years old. chest pain, cough,fever TECHNIQUE: PA and lateral views of the chest. COMPARISON: 08/25/2022 FINDINGS: The lungs are clear and expanded. There is no demonstrated pleural abnormality. Normal size heart. Normal mediastinum and lore. Normal visualized pulmonary arteries. Normal visualized aortic arch and descending thoracic aorta. Normal visualized thoracic spine. Normal visualized ribs, clavicles, and shoulders. There is no demonstrated abnormality of the visualized soft tissue structures of the upper abdomen. RAD/Chest PA and Lateral IMPRESSION: Normal x-ray examination of the chest. Electronically Signed: Ankit Tillman MD at 20:55 EDT ,
[2023-04-01 20:37] LABS: Anion Gap 4 (5-15); BUN 18 mg/dL (7-18); BUN/Creat Ratio 15.9 RATIO (10-20); Calcium,Total 9.2 mg/dL (8.5-10.1); Chloride 99 mmol/L (98-107); Creatinine, Serum 1.13 mg/dL (0.70-1.30); EST Glomerular Filtration Rate 72 mL/min (>60); Est Glom Filt Rate - Afr Amer 87 mL/min (>60); Estimated Creatinine Clearance 85.44 ml/min; Glucose 132 mg/dL (74-106); Potassium 4.1 mmol/L (3.5-5.1); Sodium Level 136 mmol/L (136-145); Troponin-I HS 4 pg/mL (3.0-78.0)
[2023-04-01 21:09] VITALS: BP 119/65; PULSE 83; RESP 15; TEMP 36.8; O2SAT 96
[2023-04-01 22:32] VITALS: BP 119/65; PULSE 83; RESP 15; O2SAT 96
== END 2023-04-01 22:32 | disposition home or self-care (01) ==
PROVIDERS: Physician Assistant; Emergency Provider Emergency Medicine; PCP Family Medicine; Visit Provider Emergency Medicine
DX: R50.9 Fever, unspecified (principal); R07.89 Other chest pain; Z87.891 Personal history of nicotine dependence
CPT/HCPCS: 71046; 80048; 81001; 84484; 85025; 87040; 87428; 93005; 96360; 99284; J7030; A4216

== ENCOUNTER → 2023-04-14 | Outpatient (CLI) | payer OTHER, SELFPAY ==
[2023-04-14 08:15] LABS: Anion Gap 2 (5-15); BUN 15 mg/dL (7-18); BUN/Creat Ratio 15.4 RATIO (10-20); Calcium,Total 8.8 mg/dL (8.5-10.1); Chloride 105 mmol/L (98-107); Cholesterol 179 mg/dL (200); Creatinine, Serum 0.98 mg/dL (0.70-1.30); EST Glomerular Filtration Rate 85 mL/min (>60); Est Glom Filt Rate - Afr Amer 103 mL/min (>60); Glucose 95 mg/dL (74-106); High Density Lipoprotein 41 mg/dL; PSA,Total - Annual Screen 1.53 ng/mL (0.00-4.00); Potassium 3.9 mmol/L (3.5-5.1); Sodium Level 139 mmol/L (136-145); Triglycerides 134 mg/dL; Very Low Density Lipoprotein 27 mg/dL (5-40)
== END | disposition home or self-care (01) ==
LOC: LAB 07:00
PROVIDERS: PCP Family Medicine; Referring Provider Family Medicine; Visit Provider Family Medicine
DX: Z13.220 Encounter for screening for lipoid disorders (principal); Z12.5 Encounter for screening for malignant neoplasm of prostate
CPT/HCPCS: 36415; 80048; 80061; 84153; G0103

== ENCOUNTER → 2023-04-25 | Outpatient (CLI) | payer OTHER, SELFPAY ==
--- NOTE | 2023-04-25 12:51 | RAD_ITS ---
EXAM: XR LUMBOSACRAL SPINE COMPLETE WITH FLEXION/EXTENSION, 6 OR MORE VIEWS CLINICAL INDICATION: back pain TECHNIQUE: Lateral, frontal, oblique and lateral flexion/extension views of the lumbar spine and sacrum. COMPARISON: No relevant prior studies available. FINDINGS: VERTEBRAE: L5 pars defects with 1 cm anterolisthesis of L5 on S1. No change in alignment with flexion or extension. Preserved vertebral body height. No fracture. Preservation of the normal lumbar lordosis. Mild facet arthropathy at L4/5 and L5/S1. DISC SPACES: Mild degenerative changes of the intervertebral discs throughout. GASTROINTESTINAL TRACT: Unremarkable as visualized. Included bowel gas pattern is non-obstructive. RAD/L/S Spine w Bend Min 6 Vw IMPRESSION: 1. L5 pars defects with 1 cm anterolisthesis of L5 on S1. No change in alignment with flexion or extension. 2. Mild degenerative changes of the intervertebral discs throughout. Electronically Signed: Ketan Willams MD at 1:33 EDT ,
== END | disposition home or self-care (01) ==
PROVIDERS: PCP Family Medicine; Referring Provider Family Medicine; Visit Provider Family Medicine
DX: M54.50 Low back pain, unspecified (principal)
CPT/HCPCS: 72114

== ENCOUNTER → 2023-04-26 | Outpatient (CLI) | payer OTHER, SELFPAY ==
[2023-04-26 06:06] LABS: Bacteria 0 SEEN /hpf (None Seen); Mucous, Urine 0 SEEN /hpf (<or=2+); Red Blood Cells-Urine 0 SEEN /hpf (0-5); Squamous Epithelial Cells - UA 0 SEEN /hpf (0-5); White Blood Cells 0 SEEN /hpf (0-5)
[2023-04-26 07:01] LABS: Absolute Lymphocyte Count 0.73 X10^3/uL (0.83-4.51); Absolute Neutrophil Count 6.3 X10^3/uL (2.0-7.7); Basophil# 0.04 X10^3/uL; Basophil% 0.5 % (0-1); Eosinophil# 0.46 X10^3/uL; Eosinophils% 5.7 % (0-5); Hematocrit 43.9 % (40-54); Lymphocyte # 0.73 X10^3/ul (0.83-4.51); Mean Corp Hgb Conc 34.2 g/dL (32-36); Mean Corpuscular Hgb 31.3 pg (27.0-32.0); Mean Corpuscular Volume 91.6 fL (80-94); Mean Platelet Vol. 8.8 fl (6.2-12.0); Monocyte# 0.55 X10^3/uL; Monocyte% 6.8 % (0-10); NRBC Flagged by Analyzer 0 % (0-5); Neutrophil # 6.32 X10^3/uL (2.7-7.7); Neutrophil % 77.5 % (47-70); Platelet Count 238 K/mm3 (150-450); RBC Distribution Width CV 12.2 % (11.6-14.6); RBC Distribution Width SD 40.8 fl (35.1-43.9); Red Blood Count 4.79 M/mm3 (4.6-6.2); White Blood Count 8.1 K/mm3 (4.4-11.0)
[2023-04-26 07:04] LABS: Color, Urine Yellow (Yellow); Glucose, Dipstick Normal (Normal); Ketone-Dipstick Negative (Negative); Leukocyte Esterase-Dipstick Negative /ul (Negative); Nitrite-Dipstick Negative (Negative); Occult Blood-Urine Negative /ul (Negative); Protein-Dipstick Negative (Negative); Urine Bilirubin Dipstick Negative (Negative); Urine Clarity Clear (Clear); Urine Urobilinogen Normal (Normal); Urine pH 6.5 (5.0 - 8.0)
[2023-04-26 08:16] LABS: ALB/GLOB Ratio 0.8 RATIO (0.9-2.4); AST(SGOT) 19 U/L (15-37); Alanine Aminotransfer ALT/SGPT 21 U/L (16-61); Albumin, Serum 3.2 g/dL (3.2-5.0); Alkaline Phosphatase 95 U/L (45-117); Anion Gap 3 (5-15); BUN 15 mg/dL (7-18); BUN/Creat Ratio 14.9 RATIO (10-20); Calcium,Total 8.9 mg/dL (8.5-10.1); Chloride 103 mmol/L (98-107); Creatinine, Serum 1.01 mg/dL (0.70-1.30); EST Glomerular Filtration Rate 82 mL/min (>60); Est Glom Filt Rate - Afr Amer 99 mL/min (>60); Globulin 3.8 g/dL (2.2-4.2); Glucose 80 mg/dL (74-106); Potassium 4.1 mmol/L (3.5-5.1); Sodium Level 139 mmol/L (136-145)
[2023-04-26 08:37] LABS: Erythrocyte Sedimentation Rate 13 mm/hr (0-20)
== END | disposition home or self-care (01) ==
LOC: LAB 05:59
PROVIDERS: PCP Family Medicine; Referring Provider Family Medicine; Visit Provider Family Medicine
DX: R35.0 Frequency of micturition (principal); R50.9 Fever, unspecified
CPT/HCPCS: 36415; 80053; 81001; 85025; 85652; 87086

== ENCOUNTER → 2024-08-14 | Outpatient (CLI) | payer OTHER, SELFPAY ==
[2024-08-14 17:40] LABS: PSA,Total - Annual Screen 1.08 ng/mL (0.00-4.00)
== END | disposition home or self-care (01) ==
LOC: LAB 16:38
PROVIDERS: PCP Family Medicine; Referring Provider Urology; Visit Provider Urology
DX: Z12.5 Encounter for screening for malignant neoplasm of prostate (principal)
CPT/HCPCS: 36415; 84153; G0103

== ENCOUNTER → 2025-08-17 | Outpatient (CLI) | payer OTHER, SELFPAY ==
[2025-08-17 17:34] LABS: PSA,Total - Annual Screen 0.93 ng/mL (0.02-4.00)
== END | disposition home or self-care (01) ==
LOC: LAB 15:50
PROVIDERS: PCP Family Medicine; Referring Provider Urology; Visit Provider Urology
DX: Z12.5 Encounter for screening for malignant neoplasm of prostate (principal)
CPT/HCPCS: 36415; 84153; G0103